=== PATIENT | male | born 1960 | race Caucasian/White ===

== ENCOUNTER 2023-10-26 22:29 | Emergency (ER) | payer MEDICARE, OTHER ==
[~2023-10-26] VITALS: Ht 180.3 cm; Wt 78.9 kg
[~2023-10-26 22:29] MED LIST: LOPRESSOR25 MG PO; PLAVIX75 MG PO; SIMVASTATIN20 MG PO
[2023-10-26 23:15] LABS: BASOPHILS % 0.4 % (0.0-1.0); EOSINOPHILS # (AUTO) 0.2 (0.0-0.4); EOSINOPHILS % 1.7 % (0.0-6.0); HEMATOCRIT 48.1 % (38.2-49.6); HEMOGLOBIN 15.8 g/dL (14.0-18.0); LYMPHOCYTES # (AUTO) 1.9 (1.0-3.2); LYMPHOCYTES % 19.4 % (18.0-39.1); MEAN CORPUSCULAR HEMOGLOBIN 31.5 pg (28-32); MEAN CORPUSCULAR HGB CONC 32.8 g/dL (31-35); MONOCYTES % 10.4 % (4.4-11.3); NEUTROPHILS # (AUTO) 6.7 (2.1-6.9); NEUTROPHILS % 67.5 % (38.7-80.0); PLATELET COUNT 182 x10e3/uL (140-360); RED BLOOD COUNT 5.01 x10e6/uL (4.3-5.7); RED CELL DISTRIBUTION WIDTH 14.3 % (11.7-14.4); WHITE BLOOD COUNT 9.91 x10e3/uL (4.8-10.8)
[2023-10-26 23:45] LABS: ALBUMIN 3.8 g/dL (3.5-5.0); ALBUMIN/GLOBULIN RATIO 1.1 (0.8-2.0); ANION GAP 19.1 mmol/L (8-16); BILIRUBIN,TOTAL 0.5 mg/dL (0.2-1.2); CALCIUM 8.7 mg/dL (8.4-10.2); CREATININE, SERUM 1.25 mg/dL (0.72-1.25); POTASSIUM 4.1 mmol/L (3.5-5.1); TOTAL PROTEIN 7.4 g/dL (6.5-8.1)
[2023-10-27 00:05] LABS: ETHANOL < 10.0 mg/dL (0.0-10.0)
[2023-10-27 00:08] LABS: TROPONIN I 0.002 ng/mL (0-0.300)
[2023-10-27] MEDS ORDERED: ONDANSETRON ODT4 MG SL (00:57)
[2023-10-27 01:03] VITALS: BP 130/75; PULSE 55; RESP 16; TEMP 98; O2SAT 99
== END 2023-10-27 01:15 | disposition home or self-care (01) ==
LOC: ER 22:33
DX: R42 Dizziness and giddiness (principal); F12.10 Cannabis abuse, uncomplicated; R11.0 Nausea; I25.10 Atherosclerotic heart disease of native coronary artery without angina pectoris; E78.5 Hyperlipidemia, unspecified; E78.00 Pure hypercholesterolemia, unspecified; Z95.5 Presence of coronary angioplasty implant and graft
CPT/HCPCS: 36415; 80053; 80307; 80320; 81001; 84484; 85025; 93005; 99284

== ENCOUNTER 2025-05-05 11:30 | Emergency (ER) | payer MEDICARE, OTHER ==
[~2025-05-05] VITALS: Ht 167.6 cm; Wt 104.3 kg
[~2025-05-05 11:30] MED LIST changes: +ONDANSETRON ODT4 MG SL
[2025-05-05 11:45] VITALS: PULSE 64; RESP 18; TEMP 97.6
[2025-05-05 12:05] LABS: BASOPHILS % 0.6 % (0.0-1.0); EOSINOPHILS % 3.7 % (0.0-6.0); LYMPHOCYTES % 29.6 % (18.0-39.1); MONOCYTES % 13.6 % (4.4-11.3); NEUTROPHILS % 52.1 % (38.7-80.0); RED CELL DISTRIBUTION WIDTH 13.8 % (11.7-14.4)
[2025-05-05 12:40] LABS: INR 0.93
[2025-05-05 12:50] LABS: EST GLOMERULAR FILTRATION RATE 75.0 ML/MIN (>=60)
[2025-05-05] MEDS ORDERED: VALTREX1000 MG PO (14:28)
[2025-05-05] MEDS ORDERED: PREDNISONE10 MG PO (14:28)
[2025-05-05 14:52] VITALS: BP 143/76; PULSE 81; RESP 17; O2SAT 100
[2025-05-05] MEDS ORDERED: IOPAMIDOL 370 MG/ML 100 ML INFUS..BTL INJ ONE (16:24)
== END 2025-05-05 19:15 | disposition home or self-care (01) ==
LOC: ER 11:58
DX: G51.0 Bell's palsy (principal); I10 Essential (primary) hypertension; E78.5 Hyperlipidemia, unspecified; I25.10 Atherosclerotic heart disease of native coronary artery without angina pectoris; E78.00 Pure hypercholesterolemia, unspecified; I25.2 Old myocardial infarction; Z95.5 Presence of coronary angioplasty implant and graft
CPT/HCPCS: 36415; 70450; 70496; 70498; 71045; 80053; 82550; 83735; 83880; 84484; 85025; 85610; 85730; 93005; 99284; Q9967